=== PATIENT | female | born 1985 | race African-American/Black ===

== ENCOUNTER 2022-07-17 05:04 | Emergency (ER) | payer MEDICAID ==
[~2022-07-17] VITALS: Ht 160 cm; Wt 86.0 kg
[2022-07-17] MEDS ORDERED: CEPH500C2 MT (06:37)
[2022-07-17 06:42] VITALS: BP 125/78
== END 2022-07-17 06:44 | disposition home or self-care (01) ==
LOC: ER 05:04
DX: N61.0 Mastitis without abscess (principal); I10 Essential (primary) hypertension; Z88.6 Allergy status to analgesic agent; Z88.5 Allergy status to narcotic agent; Z98.890 Other specified postprocedural states
CPT/HCPCS: 99283

== ENCOUNTER 2022-12-24 23:23 | Inpatient (IN) | payer MEDICAID ==
[~2022-12-24] VITALS: Ht 160 cm; Wt 78.9 kg
[~2022-12-24 23:23] MED LIST: CEPH500C2 MT
[2022-12-25] VITALS (7 sets, daily range): BP systolic 136–188; BP diastolic 79–120
[2022-12-25] MEDS ORDERED: SODIUM CHLORIDE 0.9% 1,000 ML IV ONE ×2 (00:30→04:00)
[2022-12-25] MEDS ORDERED: HYDRALAZINE 20MG/ML VIAL IV ONE (00:30)
[2022-12-25 01:00] LABS: BASOPHILS % 0.4 % (0.0-2.0); EOSINOPHILS % 1.9 % (0.0-5.0); HEMATOCRIT. 35.2 % (36.0-48.0); HEMOGLOBIN. 12.1 g/dL (12.0-16.0); LYMPHOCYTES % 19.4 % (20.0-50.0); MEAN CORPUSCULAR HEMOGLOBIN 26.2 pg (28.0-32.0); MEAN CORPUSCULAR VOLUME 76.5 fL (81.0-99.0); MEAN PLATELET VOLUME 8.2 fl (7.4-10.4); MONOCYTES % 5.7 % (2.0-8.0); NEUTROPHILS % 72.6 % (40.0-76.0); PLATELET 369 x1000/uL (130-400); RED CELL DISTRIBUTION WIDTH 14.6 % (11.6-14.6)
[2022-12-25 01:10] LABS: CHLORIDE 107 mEq/L (98-107)
[2022-12-25 01:11] LABS: HCG SCREEN NEGATIVE
[2022-12-25] MEDS ORDERED: HYDRALAZINE 20MG/ML VIAL IV NR (02:15)
[2022-12-25] MEDS ORDERED: AMPICILLIN SOD/SULBACTAM NA 3 G in SODIUM CHLORIDE 0.9% 100 ML IV STA (03:46)
[2022-12-25] MEDS ORDERED: AMPICILLIN SOD/SULBACTAM NA 3 G in SODIUM CHLORIDE 0.9% 100 ML IV NR (05:15)
[2022-12-25] MEDS ORDERED: METHYLPREDNISOLONE SOD SUCC 125 MG/2 ML VIAL IV NR (06:00)
[2022-12-25] MEDS ORDERED: NIFE-33 PO (09:59)
[2022-12-25] MEDS ORDERED: CEFTRIAXONE 1GM PREMIX 50 ML IV SCH (10:00)
[2022-12-25] MEDS ORDERED: DEXT 5%/0.45% NACL 1000ML 1,000 ML IV SCH (10:00)
[2022-12-25] MEDS: NIFEDIPINE XL 60MG TAB PO SCH ×2 (10:35→20:44)
[2022-12-25] MEDS: PANTOPRAZOLE SODIUM 40 MG/VIAL IV SCH (10:35)
[2022-12-25] MEDS: CEFTRIAXONE 1,000 MG in DEXTROSE 5% WATER 50 ML IV SCH (12:46)
[2022-12-25] MEDS: ENOXAPARIN 30MG/0.3ML SYR SUBCUT SCH ×2 (12:48→20:44)
[2022-12-25] MEDS ORDERED: VANCOMYCIN 1500MG in DEXTROSE 5% WATER 250ML IV NR (13:00)
[2022-12-25] MEDS ORDERED: ACETAMINOPHEN 325MG TABLET PO PRN (13:30)
[2022-12-25] MEDS ORDERED: CLONIDINE 0.1MG TABLET PO PRN (13:30)
[2022-12-25] MEDS ORDERED: ONDANSETRON HCL 4MG/2ML INJ IV PRN (13:30)
[2022-12-25] MEDS ORDERED: ENOXAPARIN 40MG/0.4ML SYR SUBCUT SCH (13:30)
[2022-12-25 13:41] LABS: T4 FREE 1.18 ng/dL (0.76-1.46)
[2022-12-25] MEDS: SODIUM CHLORIDE 0.9% 1,000 ML IV SCH (14:07)
[2022-12-25] MEDS: IPRATROPIUM/ALBUTEROL 0.5-3(2.5)MG/3ML NEB HHN SCH ×2 (14:46→20:34)
[2022-12-25] MEDS: VANCOMYCIN 750MG PREMIX 150 ML IV SCH (23:06)
[2022-12-26] VITALS (10 sets, daily range): BP systolic 120–160; BP diastolic 72–94
[2022-12-26] MEDS: SODIUM CHLORIDE 0.9% 1,000 ML IV SCH ×2 (01:57→16:24)
[2022-12-26] MEDS: IPRATROPIUM/ALBUTEROL 0.5-3(2.5)MG/3ML NEB HHN SCH ×4 (02:06→21:15)
[2022-12-26 07:25] LABS: BASOPHILS % 0.2 % (0.0-2.0); EOSINOPHILS % 0.2 % (0.0-5.0); HEMATOCRIT. 34.4 % (36.0-48.0); HEMOGLOBIN. 11.9 g/dL (12.0-16.0); LYMPHOCYTES % 18.8 % (20.0-50.0); MEAN CORPUSCULAR HEMOGLOBIN 26.4 pg (28.0-32.0); MEAN CORPUSCULAR VOLUME 76.7 fL (81.0-99.0); MEAN PLATELET VOLUME 8.2 fl (7.4-10.4); MONOCYTES % 7.2 % (2.0-8.0); NEUTROPHILS % 73.6 % (40.0-76.0); PLATELET 363 x1000/uL (130-400); RED BLOOD CELL COUNT 4.49 mill/uL (4.2-5.4); RED CELL DISTRIBUTION WIDTH 14.8 % (11.6-14.6)
[2022-12-26] MEDS: ENOXAPARIN 30MG/0.3ML SYR SUBCUT SCH (09:00)
[2022-12-26] MEDS: PANTOPRAZOLE SODIUM 40 MG/VIAL IV SCH (09:08)
[2022-12-26] MEDS: NIFEDIPINE XL 60MG TAB PO SCH (09:10)
[2022-12-26 09:24] LABS: CHLORIDE 108 mEq/L (98-107)
[2022-12-26] MEDS ORDERED: POTASSIUM CHLORIDE 20MEQ/PACKET PO NR (11:00)
[2022-12-26] MEDS: CEFTRIAXONE 1,000 MG in DEXTROSE 5% WATER 50 ML IV SCH (11:53)
[2022-12-26] MEDS: VANCOMYCIN 750MG PREMIX 150 ML IV SCH (11:53)
[2022-12-26] MEDS ORDERED: AMOX1TAB16 MT (20:53)
[2022-12-26] MEDS ORDERED: VANCOMYCIN 750MG PREMIX 150 ML IV SCH (22:00)
[2022-12-27] MEDS ORDERED: FAMOTIDINE 20MG/2ML VIAL IV SCH (09:00)
[2022-12-27] MEDS ORDERED: ENOXAPARIN 40MG/0.4ML SYR SUBCUT SCH (09:00)
== END 2022-12-27 06:59 | disposition home or self-care (01) | DRG 199 ==
LOC: ER 12-25 00:25 → 5EST 12-25 06:22 → EDBEDREQSVC 12-25 08:29
PROVIDERS: ADMIT Internal Medicine; ATTEND Internal Medicine
DX: I16.0 Hypertensive urgency (principal); J05.10 Acute epiglottitis without obstruction; J02.9 Acute pharyngitis, unspecified; R13.10 Dysphagia, unspecified; Z88.6 Allergy status to analgesic agent; Z82.49 Family history of ischemic heart disease and other diseases of the circulatory system
CPT/HCPCS: 36415; 70490; 76770; 80048; 82088; 82962; 83605; 84145; 84244; 84439; 84443; 84481; 84703; 85025; 86038; 94640; 99291; C9113; J0295; J0360; J0696; J1650; J2930; J3370; J7030; J7050; J7060

== ENCOUNTER 2024-01-14 23:24 | Emergency (ER) | payer MEDICAID ==
[~2024-01-14] VITALS: Ht 160 cm; Wt 81.1 kg
[~2024-01-14 23:24] MED LIST changes: +AMOX1TAB16 MT; -CEPH500C2 MT; +NIFE-33 PO
[2024-01-14 23:39] VITALS: TEMP 98.5; O2SAT 100
[2024-01-15 00:46] LABS: CLARITY URINE CLEAR (CLEAR); COLOR URINE YELLOW (YELLOW); GLUCOSE URINE NEGATIVE (NEGATIVE); KETONES URINE TRACE (NEGATIVE); LEUKOCYTE ESTERASE URINE 1+ (NEGATIVE); NITRITE URINE NEGATIVE (NEGATIVE); OCCULT BLOOD URINE NEGATIVE (NEGATIVE); PROTEIN URINE NEGATIVE (NEGATIVE); SPECIFIC GRAVITY URINE 1.013 (1.005-1.030); UROBILINOGEN URINE 0.2 E.U./dL (0.2-1.0)
[2024-01-15 00:48] LABS: BASOPHILS % 0.6 % (0.0-2.0); DIFFERENTIAL COMMENT 0; EOSINOPHILS % 1.5 % (0.0-5.0); HEMATOCRIT. 36.4 % (36.0-48.0); HEMOGLOBIN. 12.1 g/dL (12.0-16.0); MEAN CORPUSCULAR HEMOGLOBIN 24.9 pg (28.0-32.0); MEAN CORPUSCULAR HGB CONC 33.1 g/dL (31.0-37.0); MEAN CORPUSCULAR VOLUME 75.3 fL (81.0-99.0); MEAN PLATELET VOLUME 8.8 fl (7.4-10.4); MONOCYTES % 6.9 % (2.0-8.0); PLATELET 268 x1000/uL (130-400); RED BLOOD CELL COUNT 4.84 mill/uL (4.2-5.4); RED CELL DISTRIBUTION WIDTH 15.4 % (11.6-14.6); WHITE BLOOD COUNT 8.2 x1000/uL (4.5-11.0)
[2024-01-15 00:55] LABS: CHLORIDE 107 mEq/L (98-107); POTASSIUM 4.1 mEq/L (3.5-5.1); SODIUM 138 mEq/L (136-145)
[2024-01-15 00:56] LABS: CALCIUM 8.8 mg/dL (8.7-10.4); CARBON DIOXIDE 24 mEq/L (21-32)
[2024-01-15 00:58] LABS: HCG SCREEN NEGATIVE
[2024-01-15 01:01] LABS: CREATININE 1.2 mg/dL (0.6-1.0); GLUCOSE 92 mg/dL (70-105); UREA NITROGEN BLOOD 9 mg/dL (9-23)
[2024-01-15 01:03] LABS: ALANINE AMINOTRANSFERASE 15 IU/L (10-49); ALBUMIN 4.7 g/dL (3.2-4.8); ASPARTATE AMINOTRANSFERASE 18 IU/L (<34); BILIRUBIN TOTAL 0.3 mg/dL (0.1-1.0); PROTEIN TOTAL 7.8 g/dL (6.0-8.3)
[2024-01-15 01:03] LABS: SQUAMOUS EPITHELIAL CELL URINE FEW /lpf (RARE/1+)
[2024-01-15 01:04] LABS: BACTERIA URINE 1+; RBC URINE 0-2 /hpf (0-2)
[2024-01-15] MEDS ORDERED: AZIT250T12 MT (02:22)
[2024-01-15] MEDS ORDERED: NAPR275T96 MT (02:24)
[2024-01-15] MEDS ORDERED: DEXAMETHASONE 10 MG/ML VIAL IM ONE (02:30)
[2024-01-15] MEDS: AZITHROMYCIN 500 MG TABLET PO ONE (02:30)
[2024-01-15] MEDS ORDERED: KETOROLAC 60MG/2ML VIAL IM ONE (02:30)
[2024-01-15] MEDS ORDERED: NIFEDIPINE XL 30MG TAB PO ONE (02:45)
[2024-01-15] MEDS ORDERED: HYDRALAZINE 20MG/ML VIAL IV ONE (04:00)
[2024-01-15 04:55] VITALS: BP 199/127; PULSE 90; RESP 20
[2024-01-15] MEDS ORDERED: AMLO5TAB88 MT (05:05)
[2024-01-15] MEDS ORDERED: CLON0.2T MT (05:05)
== END 2024-01-15 05:11 | disposition home or self-care (01) ==
LOC: ER 23:24 → CANBEDREQ 01-15 16:33
DX: I10 Essential (primary) hypertension (principal); J02.9 Acute pharyngitis, unspecified; Z79.899 Other long term (current) drug therapy
CPT/HCPCS: 81003; 81025; 36415; 99285; 80053; 84703; 87430; 85025; 87070; J1100; J0360; J1885; Z7610